=== PATIENT | female | born 1985 | race Caucasian/White ===

== ENCOUNTER → 2016-11-03 | Outpatient (CLI) | payer BC ==
[2016-11-03 14:03] LABS: CH 32.9; CHCM 34.3; HCT 38.8 % (34.0-46.0); HDW 2.75; HGB 12.9 gm/dL (11.4-16.0); MCH 32.1 pg (25.0-35.0); MCHC 33.2 g/dL (31.0-37.0); MCV 96.7 fL (80.0-100.0); Mean Platelet Volume 7.8; RBC 4.01 m/uL (3.80-5.40); RDW 13.6 % (11.5-15.5); WBC 9.5 k/uL (3.8-10.6)
[2016-11-03 14:25] LABS: Glucose 96 mg/dL (74-99); Non-African American GFR(MDRD) >60 (>60 ml/min/1.73 sqM)
[2016-11-03 14:56] LABS: Hepatitis B Surface Ag Index 0.05
[2016-11-04 04:18] LABS: Toxoplasma Antibody (IgG) <3.0 IU/mL (<7.2)
== END | disposition home or self-care (01) ==
LOC: LABWHC1 13:35
PROVIDERS: ATTEND Obstetrics & Gynecology
DX: Z34.82 Encounter for supervision of other normal pregnancy, second trimester (principal); Z3A.00 Weeks of gestation of pregnancy not specified
CPT/HCPCS: 36415; 82565; 82947; 85027; 86762; 86777; 86778; 86780; 86850; 86900; 86901; 87340

== ENCOUNTER → 2016-11-16 | Outpatient (CLI) | payer BC ==
--- NOTE | 2016-11-17 06:47 | US ---
EXAMINATION TYPE: US OB anatomy transabd DATE OF EXAM: 11/16/2016 3:56 PM COMPARISON: NONE HISTORY: LGA, smoker, TECHNIQUE: Transabdominal (TA) EXAM MEASUREMENTS: GESTATIONAL AGE / DATING Physician Established: (20 weeks/1 day) EDC: 04/04/2017 Dates by LMP: (20 weeks/1 day) EDC: 04/04/2017 Dates by First Scan: today Dates by Current Scan for: (19 weeks/3 days) EDC: 04/09/2017 SURVEY IUP: Single PLACENTA: Anterior PREVIA: No previa ANTONY: 17.4 cm Normal CERVICAL LENGTH (transabdominal: norm > 3.0cm): 3.7 cm BIOMETRY PRESENTATION: Breech at exam's start LIE: Oblique BPD: 4.5 cm 19 weeks / 4 days HC: 16.7 cm 19 weeks / 3 days AC: 14.1 cm 19 weeks / 3 days FL: 2.9 cm 19 weeks / 0 days ESTIMATED WEIGHT IN GRAMS: 282.9 grams ESTIMATED WEIGHT IN LBS/OZS: 0 lbs. 10 oz. WEIGHT PERCENTAGE BASED ON ESTABLISHED DATE: 9.3 % HC/AC: 1.18 normal FL/AC: 20.7 normal HEART RATE: 157 bpm RHYTHM: Normal ANATOMY SEEN (within normal limits): * Lateral Vent (< 1 cm) 0.6 cm * Cisterna Magna (< 1.1 cm) 0.4 cm * Nuchal Fold (< 0.6 cm) 0.5 cm * Cerebellum (varies with age) 1.9 cm Choroid Plexus (bilateral) Midline Falx Cavus Septi Pellucidi Four Chamber Heart Outflow tracts: LVOT Stomach Situs Diaphragm Kidneys (bilateral) Bladder Cord Insert Three Vessel Cord Longitudinal Spine Transverse Spine Arms (bilateral) Legs (bilateral) ANATOMY SEEN (does not appear within normal limits): ANATOMY NOT SEEN: Nose / Lips as <20 weeks gestation RVOT is limitedly seen TECHNOLOGIST IMPRESSION: Single, live, IUP, 19 weeks/3 days, EDC: 04/09/2017; HR 157bpm. IMPRESSION: Haq fetus present in breech presentation with a gestational age of 19 weeks 3 days +/- 10 days. Estimated date of confinement based on this examination is 04/09/2017. Please note that the morphologic examination is somewhat limited.
== END | disposition home or self-care (01) ==
LOC: RADUSWWP 14:50
PROVIDERS: ATTEND Obstetrics & Gynecology
DX: O36.62X0 Maternal care for excessive fetal growth, second trimester, not applicable or unspecified (principal); Z3A.00 Weeks of gestation of pregnancy not specified
CPT/HCPCS: 76811

== ENCOUNTER → 2017-01-06 | Outpatient (CLI) | payer BC ==
--- NOTE | 2017-01-06 14:57 | US ---
EXAMINATION TYPE: US OB anatomy transabd DATE OF EXAM: 01/06/2017 2:41 PM COMPARISON: US in PACS HISTORY: Z36 Confirm Dates Order states check remainder of anatomy not visualized on previous TECHNIQUE: Transabdominal (TA) EXAM MEASUREMENTS: GESTATIONAL AGE / DATING Physician Established: ( weeks/ days) EDC: Dates by LMP: ( weeks/ days) EDC: Dates by First Scan: ( weeks/ days) EDC: Dates by Current Scan for: ( weeks/ days) EDC: SURVEY IUP: Single PLACENTA: Anterior PREVIA: No previa ANTONY: 14.9 cm Normal CERVICAL LENGTH (transabdominal: norm > 3.0cm): 3.9 cm BIOMETRY PRESENTATION: Vertex BPD: 7.0 cm 28 weeks / 1 days HC: 26.4 cm 28 weeks / 6 days AC: 22.3 cm 26 weeks / 6 days FL: 5.1 cm 27 weeks / 3 days ESTIMATED WEIGHT IN GRAMS: 1042 grams ESTIMATED WEIGHT IN LBS/OZS: 2 lbs. 5 oz. WEIGHT PERCENTAGE BASED ON ESTABLISHED DATE: 29 % HC/AC: 1.18 Normal FL/AC: 23 Normal HEART RATE: 147 bpm RHYTHM: Normal ANATOMY SEEN (within normal limits): Outflow tracts: RVOT Nose / Lips Single, viable IUP/ Remainder of anatomy visualized and appears wnl IMPRESSION: OWENS FETUS PRESENT IN A VERTEX LIE WITH A GESTATIONAL AGE OF 27 WEEKS 3 DAYS +/- 2 WEEKS. ESTIMA JU DATE OF CONFINEMENT BASED ON THIS EXAMINATION IS 04/01/2017.
[2017-01-06 16:37] LABS: CH 33.2; CHCM 33.9; HCT 36.1 % (34.0-46.0); HDW 2.88; HGB 12.1 gm/dL (11.4-16.0); MCH 33.1 pg (25.0-35.0); MCHC 33.6 g/dL (31.0-37.0); MCV 98.5 fL (80.0-100.0); Mean Platelet Volume 7.5; RBC 3.66 m/uL (3.80-5.40); RDW 14.2 % (11.5-15.5); WBC 11.1 k/uL (3.8-10.6)
== END | disposition home or self-care (01) ==
LOC: RADUSWWP 14:19
PROVIDERS: ATTEND Obstetrics & Gynecology
DX: Z36 Encounter for antenatal screening of mother (principal); Z3A.27 27 weeks gestation of pregnancy
CPT/HCPCS: 36415; 76805; 82950; 85027

== ENCOUNTER 2017-04-11 06:03 | Inpatient (IN) | payer BC ==
[2017-04-11] MEDS ORDERED: CARBOPROST TROMETHAMINE 250 MCG/ML 1 ML AMP IM PRN (06:16)
[2017-04-11] MEDS ORDERED: METHYLERGONOVINE 0.2 MG/ML 1 ML AMP IM PRN (06:16)
[2017-04-11] MEDS ORDERED: LIDOCAINE 1% 20 ML VIAL (10MG/ML) FOR IV START INTRADERMA PRN (06:16)
[2017-04-11] MEDS ORDERED: OXYTOCIN 20 UNITS/1000 ML NS 1,000 ML IV SCH ×2 (06:16→11:42)
[2017-04-11] MEDS ORDERED: LIDOCAINE 1% (PF) 10 MG/ML (30 ML SDV) SQ PRN (06:16)
[2017-04-11] MEDS ORDERED: TERBUTALINE 1 MG/ML VIAL SQ PRN (06:16)
[2017-04-11] MEDS ORDERED: OXYTOCIN 10 UNIT/ML 1 ML VIAL IM PRN (06:16)
[2017-04-11 06:31] LABS: Basophils % (A) 0 %; CH 33.1; CHCM 34.7; Eosinophils # (A) 0.1 k/uL (0-0.7); Eosinophils % (A) 1 %; HCT 39.2 % (34.0-46.0); HDW 2.96; HGB 13.4 gm/dL (11.4-16.0); Luc # (Auto) 0.23; Luc % (Auto) 2; Lymphocytes # (A) 2.5 k/uL (1.0-4.8); Lymphocytes % (A) 23 %; MCH 32.9 pg (25.0-35.0); MCHC 34.3 g/dL (31.0-37.0); MCV 96.1 fL (80.0-100.0); Mean Platelet Volume 8.7; Monocytes # (A) 0.4 k/uL (0-1.0); Monocytes % (A) 4 %; Neutrophils # (A) 7.3 k/uL (1.3-7.7); Neutrophils % (A) 69 %; RBC 4.07 m/uL (3.80-5.40); RDW 15.6 % (11.5-15.5); WBC 10.6 k/uL (3.8-10.6)
[2017-04-11 06:44] VITALS: BMI 36.0
[2017-04-11] MEDS: LACTATED RINGERS 1,000 ML IV SCH ×2 (06:45→09:12)
--- NOTE | 2017-04-11 08:29 | P.HPOB ---
History of Present Illness H&P Date: 04/11/17 Chief Complaint: Induction of labor This is a 32-year-old female 3 para 2 with an estimated date of confinement of 04/04/2017, estimated gestational age of 41 weeks, who presents to labor and delivery for induction of labor secondary to postdates. She admits to good movement. She has been feeling frequent contractions. She denies any rupture of membranes. course has been uncomplicated. labs: Toxoplasma-negative Random glucose-96 Hepatitis B surface antigen-negative Hemoglobin-12.9 Syphilis antibody-negative nonreactive Rubella-low positive Blood type-be positive Antibody screen-negative Anatomy scan-normal anatomy Group B streptococcus-negative One hour Glucola-122 Obstetrical history: . History of 2 vaginal deliveries at full-term. Gynecologic history: No history of sexual transmitted diseases Social history: She is and is a homemaker. Review of Systems Constitutional: Denies chills, Denies fever Eyes: denies blurred vision, denies pain Ears, nose, mouth and throat: Denies headache, Denies sore throat Cardiovascular: Reports shortness of breath, Denies chest pain Gastrointestinal: Reports abdominal pain (Contractions) Genitourinary: Reports pelvic pain, Reports Musculoskeletal: Denies myalgias Integumentary: Denies pruritus, Denies rash Neurological: Denies numbness, Denies weakness Past Medical History Past Medical History: No Reported History History of Any Multi-Drug Resistant Organisms: None Reported Past Surgical History: No Surgical Hx Reported Additional Past Surgical History / Comment(s): [place] teeth Past Anesthesia/Blood Transfusion Reactions: No Reported Reaction Past Psychological History: Depression Smoking Status: Former smoker Past Alcohol Use History: None Reported Additional Past Alcohol Use History / Comment(s): 2 CIG A DAY Past Drug Use History: None Reported - Past Family History Mother Family Medical History: Thyroid Disorder Additional Family Medical History / Comment(s): hypoglycemia Medications and Allergies Home Medications Medication Instructions Recorded Confirmed Type Zgr-Qnwd-Ekvzo Acid 1 each PO DAILY 01/31/14 04/11/17 History [-U Capsule (formulary)] Calcium Carbonate [Calcium] 600 mg PO DAILY 04/01/15 04/11/17 History Allergies Allergy/AdvReac Type Severity Reaction Status Date / Time No Known Allergies Allergy Verified 04/11/17 06:16 Exam Osteopathic Statement: *. No significant issues noted on an osteopathic structural exam other than those noted in the History and Physical/Consult. - Vital Signs Vital signs: Vital Signs Temp Pulse Resp BP Pulse Ox 04/11/17 06:15 96 F L 94 18 122/76 97 Intake and Output 04/10/17 04/11/17 04/11/17 22:59 06:59 14:59 Other: Weight 104.326 kg EENT: Within normal limits Heart: Regular rate and rhythm Lungs: Clear to auscultation bilaterally Abdomen: Cervix: 4.5 to 5 cm/70%/-2 station. The official rupture membranes is carried out with thin meconium noted. Extremities: Negative Homans heart tones: Reactive Contractions: Irregular Results Result Diagrams: 04/11/17 06:20 Abnormal Lab Results - Last 24 Hours (Table) 04/11/17 Range/Units 06:20 RDW 15.6 H (11.5-15.5) % Assessment and Plan (1) 41 weeks gestation of Status: Acute (2) Post-dates Status: Acute (3) Meconium in amniotic fluid affecting management of mother in third trimester Status: Acute Plan: Admission for induction of labor. Artificial rupture membranes and oxytocin induction of labor. Epidural anesthesia. Expectant management. Anesthesia will be notified to be present for delivery due to meconium.
[2017-04-11] MEDS ORDERED: fentaNYL (PF) 50 MCG/ML 5 ML AMP ONE (08:31)
[2017-04-11] MEDS ORDERED: BUPIVACAINE (PF) 0.25% 30 ML VIAL ONE (08:31)
[2017-04-11] MEDS ORDERED: SODIUM CHLORIDE 0.9% 100 ML BAG ONE (08:31)
[2017-04-11] MEDS ORDERED: BUPIVACAINE (PF) 0.25% 25 ML, fentaNYL (PF) 200 MCG in SODIUM CHLORIDE 0.9% 71 ML EPIDURAL ONE (09:05)
[2017-04-11] MEDS ORDERED: BENZOCAINE/MENTHOL SPRAY 1 GM/SPRAY AEROSOL TOPICAL PRN (11:42)
[2017-04-11] MEDS ORDERED: WITCH HAZEL 1 EACH MED..PAD TOPICAL PRN (11:42)
[2017-04-11] MEDS ORDERED: SIMETHICONE 80 MG CHEWABLE PO PRN (11:42)
[2017-04-11] MEDS ORDERED: diphenhydrAMINE 50 MG/ML 1 ML VIAL IVP PRN ×2 (11:42)
[2017-04-11] MEDS ORDERED: LANOLIN CREAM 5 GM TUBE TOPICAL PRN (11:42)
[2017-04-11] MEDS ORDERED: Acetaminophen-Codeine 300-30mg TAB PO PRN ×2 (11:42)
[2017-04-11] MEDS ORDERED: diphenhydrAMINE 50 MG CAP PO PRN (11:42)
[2017-04-11] MEDS ORDERED: MEASLES-MUMPS-RUBELLA VACC/PF 12,500 UNIT/0.5 ML VIAL SQ ONE (11:42)
[2017-04-11] MEDS ORDERED: HYDROCORTISONE 2.5% RECTAL CREAM 30 GM TUBE RECTAL PRN (11:42)
[2017-04-11] MEDS ORDERED: diphenhydrAMINE 25 MG CAP PO PRN (11:42)
[2017-04-11] MEDS ORDERED: ZOLPIDEM 5 MG TAB PO PRN (11:42)
[2017-04-11] MEDS: IBUPROFEN 600 MG TAB PO PRN ×2 (13:16→19:27)
--- NOTE | 2017-04-11 13:32 | P.PROBDLV ---
Vaginal Delivery Note - . Vaginal Delivery Note: The patient progressed to complete dilation after oxytocin induction of labor and artificial rupture membranes with thin meconium noted. She did receive epidural anesthesia. Once reaching complete dilation, she began pushing. Infant's head came to a crown and then delivered across the perineum followed by the anterior shoulder. Nose and mouth were bulb suctioned at the perineum and nuchal cord times one was reduced around the 's head. With one further push, the uterus the infant easily delivered and was placed on mother's abdomen. Brisk cry was noted immediately. Cord was clamped and cut and infant was taken to warmer for evaluation. A viable female was noted with scores of 8 at 1 minute and 9 at 5 minutes and weight of 7 lbs. 6 oz. Placenta delivered shortly thereafter, intact, with a three-vessel cord. Uterus contracted well after oxytocin was given and uterine massage was carried out. A small second-degree perineal laceration was noted and anesthetized with 1% lidocaine and sutured with 3-0 Vicryl suture in a running locked fashion. Estimated blood loss is approximately 150 mL's. Both mother and infant are in stable condition.
[2017-04-11] MEDS: ACETAMINOPHEN TAB 325 MG TAB PO PRN ×2 (16:18→21:51)
[2017-04-11] MEDS: SENNOSIDES-DOCUSATE SODIUM 1 EACH TAB PO SCH (19:28)
[2017-04-12 00:02] VITALS: PULSE 85
[2017-04-12] MEDS: IBUPROFEN 600 MG TAB PO PRN (03:49)
[2017-04-12 06:34] LABS: Basophils % (A) 0 %; CH 32.8; CHCM 33.8; Eosinophils # (A) 0.2 k/uL (0-0.7); Eosinophils % (A) 1 %; HCT 35.2 % (34.0-46.0); HDW 2.94; HGB 11.9 gm/dL (11.4-16.0); Luc # (Auto) 0.21; Luc % (Auto) 2; Lymphocytes # (A) 2.3 k/uL (1.0-4.8); Lymphocytes % (A) 22 %; MCHC 33.8 g/dL (31.0-37.0); MCV 97.7 fL (80.0-100.0); Macrocytosis Slight; Mean Platelet Volume 8.4; Monocytes # (A) 0.3 k/uL (0-1.0); Monocytes % (A) 3 %; Neutrophils # (A) 7.5 k/uL (1.3-7.7); Neutrophils % (A) 71 %; RDW 15.9 % (11.5-15.5); WBC 10.6 k/uL (3.8-10.6); WBC (Perox) 11.01
[2017-04-12] MEDS: SENNOSIDES-DOCUSATE SODIUM 1 EACH TAB PO SCH (07:54)
[2017-04-12 08:00] VITALS: BP 127/72; RESP 18; TEMP 97.8
--- NOTE | 2017-04-12 08:48 | P.DS ---
Providers Date of admission: 04/11/17 06:03 Expected date of discharge: 04/12/17 Attending physician: Rylee Gonzales Primary care physician: Yudi Torres - Discharge Diagnosis(es) (1) 41 weeks gestation of Current Visit: Yes Status: Acute (2) Post-dates Current Visit: Yes Status: Acute (3) Meconium in amniotic fluid affecting management of mother in third trimester Current Visit: Yes Status: Acute Hospital Course: This is a 32-year-old female 3 para 2 at 41-0/7 weeks who presented for induction of labor. She underwent oxytocin induction of labor and delivered vaginally a viable female infant on 04/11/2017 with scores of 8 at 1 minute and 9 at 5 minutes and weight of 7 lbs. 6 oz. Meconium fluid was noted and she did have a nuchal cord times one. Her course was uncomplicated. Pain is fairly well controlled with ibuprofen and Tylenol 3. Lochia is decreasing. She is breast-feeding without difficulty. Vital signs are stable. Abdomen is soft with fundus firm and nontender. Extremity show negative Homans. Impression is status post vaginal delivery day #1. Plan is to discharge home today. Routine instructions are given. She will be given prescriptions for ibuprofen and Tylenol 3. She is advised to follow up in the office in 6 weeks. She is advised to call the office if she has any further questions or concerns prior to her appointment time. Procedures: Pitocin induction of labor Spontaneous vaginal delivery of a viable female on 04/11/2017 Patient Condition at Discharge: Stable Plan - Discharge Summary New Discharge Prescriptions: New Acetaminophen-Codeine 300-30mg [Tylenol w/codeine #3] 1 each PO Q4HR PRN #30 tab PRN Reason: Mild Pain exceeding Tylenol Ibuprofen [Motrin] 600 mg PO Q6HR PRN #60 tab PRN Reason: Mild Pain Or Fever >= 100.5 Continue Csu-Npfo-Quvmn Acid [-U Capsule (formulary)] 1 each PO DAILY Calcium Carbonate [Calcium] 600 mg PO DAILY Discharge Medication List Pyf-Drvn-Yjxiu Acid [-U Capsule (formulary)] 1 each PO DAILY [History] Calcium Carbonate [Calcium] 600 mg PO DAILY 04/01/15 [History] Acetaminophen-Codeine 300-30mg [Tylenol w/codeine #3] 1 each PO Q4HR PRN #30 tab 04/12/17 [Rx] Ibuprofen [Motrin] 600 mg PO Q6HR PRN #60 tab 04/12/17 [Rx] Follow up Appointment(s)/Referral(s): Rylee Gonzales DO [Doctor of Osteopathic Medicine] - 6 Weeks Activity/Diet/Wound Care/Special Instructions: Instructions 1. Do not begin any exercise program for 3 weeks. 2. Do not resume sexual relations for 3 weeks or longer if uncomfortable. 3. You may take tub baths or showers at any time. 4. You may use tampons if desired after 3 weeks. 5. Keep the area of episiotomy (stitches) clean and dry. 6. If you are not nursing, wear a good fitting, supportive bra during the day and limit fluid intake for at least 1 week to prevent breast engorgement. 7. Call the office, [phone], within the next week to make appointment for your 6 week checkup if it has not already been made. 8. Report any of the following occurrences to the doctor promptly: a. Heavy, excessive bleeding b. Chills, fever c. Burning or frequency of urination d. Pain or redness and breasts if nursing e. Increasing pain or swelling in episiotomy (stitches). In addition to the above instructions, the following additional should be followed: 1. No heavy lifting or straining (exercising) until after 6 week checkup. 2. Keep abdominal incision clean and dry: You may wear a dressing if more comfortable. 3. Make office appointment for 10 days after going home or as instructed by her doctor. Discharge Disposition: HOME SELF-CARE
== END 2017-04-12 11:15 | disposition home or self-care (01) | DRG 775 ==
LOC: 4FBP 06:03
PROVIDERS: ADMIT Obstetrics & Gynecology; ATTEND Obstetrics & Gynecology
PROC: 10E0XZZ Delivery of Products of Conception, External Approach (ICD-10-PCS; principal; 2017-04-11)
PROC: 10907ZC Drainage of Amniotic Fluid, Therapeutic from Products of Conception, Via Natural or Artificial Opening (ICD-10-PCS; principal; 2017-04-11)
PROC: 3E0R3CZ (ICD-10-PCS; principal; 2017-04-11)
PROC: 3E033VJ Introduction of Other Hormone into Peripheral Vein, Percutaneous Approach (ICD-10-PCS; principal; 2017-04-11)
PROC: 0KQM0ZZ Repair Perineum Muscle, Open Approach (ICD-10-PCS; principal; 2017-04-11)
PROC: 00HU33Z Insertion of Infusion Device into Spinal Canal, Percutaneous Approach (ICD-10-PCS; principal; 2017-04-11)
DX: O48.0 Post-term pregnancy (principal); O77.0 Labor and delivery complicated by meconium in amniotic fluid; Z37.0 Single live birth; O69.81X0 Labor and delivery complicated by cord around neck, without compression, not applicable or unspecified; Z3A.41 41 weeks gestation of pregnancy; Z87.891 Personal history of nicotine dependence; O70.1 Second degree perineal laceration during delivery
CPT/HCPCS: 85025; 88307

== ENCOUNTER 2020-09-22 11:55 | Inpatient (IN) | payer BC ==
[2020-09-22] MEDS ORDERED: CARBOPROST TROMETHAMINE 250 MCG/ML 1 ML AMP IM PRN (12:42)
[2020-09-22] MEDS ORDERED: LIDOCAINE 0.5% (PF) 5 MG/ML (50 ML SDV) SQ PRN (12:42)
[2020-09-22] MEDS ORDERED: TERBUTALINE 1 MG/ML VIAL SQ PRN (12:42)
[2020-09-22] MEDS ORDERED: OXYTOCIN 10 UNIT/ML 1 ML VIAL IM PRN (12:42)
[2020-09-22] MEDS ORDERED: METHYLERGONOVINE 0.2 MG/ML 1 ML AMP IM PRN (12:42)
[2020-09-22] MEDS ORDERED: OXYTOCIN 30 UNITS/500 ML NS 30 UNIT in SALINE 1 500ML.BAG IV SCH (12:45)
[2020-09-22] MEDS ORDERED: LACTATED RINGERS 1,000 ML IV SCH (12:45)
[2020-09-22 12:58] LABS: Glucose,Whole Blood 86 mg/dL (75-99)
[2020-09-22 13:12] LABS: Basophils % (A) 0 %; Eosinophils # (A) 0.1 k/uL (0-0.7); Eosinophils % (A) 1 %; HCT 45.3 % (34.0-46.0); HGB 16.2 gm/dL (11.4-16.0); Lymphocytes % (A) 16 %; MCHC 35.7 g/dL (31.0-37.0); MCV 95.3 fL (80.0-100.0); Monocytes # (A) 0.4 k/uL (0-1.0); Monocytes % (A) 3 %; Neutrophils # (A) 9.8 k/uL (1.3-7.7); Neutrophils % (A) 78 %; Platelet Count 208 k/uL (150-450); RBC 4.75 m/uL (3.80-5.40); RDW 14.5 % (11.5-15.5); WBC 12.5 k/uL (3.8-10.6)
[2020-09-22] MEDS ORDERED: ROPIVACAINE 5MG/ML 20ML VIAL ONE (13:30)
[2020-09-22] MEDS ORDERED: fentaNYL (PF) 50 MCG/ML 5 ML AMP ONE (13:30)
[2020-09-22] MEDS ORDERED: SODIUM CHLORIDE 0.9% 100 ML BAG ONE (13:30)
[2020-09-22] MEDS ORDERED: SIMETHICONE 80 MG CHEWABLE PO PRN (15:27)
[2020-09-22] MEDS ORDERED: diphenhydrAMINE 25 MG CAP PO PRN (15:27)
[2020-09-22] MEDS ORDERED: LANOLIN CREAM 5 GM TUBE TOPICAL PRN (15:27)
[2020-09-22] MEDS ORDERED: ZOLPIDEM 5 MG TAB PO PRN (15:27)
[2020-09-22] MEDS ORDERED: HYDROCORTISONE 2.5% RECTAL CREAM 30 GM TUBE RECTAL PRN (15:27)
[2020-09-22] MEDS ORDERED: BENZOCAINE/MENTHOL SPRAY 1 GM/SPRAY AEROSOL TOPICAL PRN (15:27)
[2020-09-22] MEDS ORDERED: diphenhydrAMINE 50 MG/ML 1 ML VIAL IVP PRN ×2 (15:27)
[2020-09-22] MEDS ORDERED: diphenhydrAMINE 50 MG CAP PO PRN (15:27)
[2020-09-22] MEDS ORDERED: ACETAMINOPHEN TAB 325 MG TAB PO PRN (15:27)
[2020-09-22] MEDS ORDERED: OXYTOCIN 20 UNITS/1000 ML NS 1,000 ML IV SCH (15:30)
--- NOTE | 2020-09-22 18:15 | P.HPOB ---
History of Present Illness H&P Date: 09/22/20 Chief Complaint: Spontaneous rupture of membranes This is a 35-year-old female 4 para 3 with an estimated date of confinement of 09/24/2020, estimated gestational age of 39-5/7 weeks, who presented to labor and delivery with complaints of contractions and spontaneous rupture of membranes at approximately 8:30 AM with clear fluid noted. She has been feeling irregular contractions since. care has been complicated by gestational diabetes and a double looped placenta. She has been following with maternal- medicine and has been diet controlled. labs: GC/chlamydia/Trichomonas-negative Obstetrical ultrasound-normal anatomy Hepatitis B surface antigen-negative RPR-nonreactive Rubella-nonimmune Blood type-B+ Antibody screen-negative Hemoglobin-12.8 Toxoplasma screen-negative Random glucose-139 One hour Glucola-176 Three-hour Glucola-abnormal Group B streptococcus-negative Obstetrical history: . History of 3 vaginal deliveries at term. Gynecologic history: No history of sexually transmitted diseases. Social history: She is . She is a homemaker. Review of Systems Constitutional: Denies chills, Denies fever Eyes: denies blurred vision, denies pain Ears, nose, mouth and throat: Denies headache, Denies sore throat Cardiovascular: Denies chest pain, Denies shortness of breath Respiratory: Denies cough Gastrointestinal: Reports abdominal pain Genitourinary: Reports pelvic pain, Reports Musculoskeletal: Reports low back pain Integumentary: Denies pruritus, Denies rash Neurological: Denies numbness, Denies weakness Psychiatric: Denies anxiety, Denies depression Past Medical History Additional Past Medical History / Comment(s): gestational diabetes diet controlled History of Any Multi-Drug Resistant Organisms: None Reported Additional Past Surgical History / Comment(s): [place] teeth Past Anesthesia/Blood Transfusion Reactions: No Reported Reaction Past Psychological History: No Psychological Hx Reported Smoking Status: Current some day smoker Past Alcohol Use History: None Reported Past Drug Use History: None Reported - Past Family History Mother Family Medical History: Thyroid Disorder Additional Family Medical History / Comment(s): hypoglycemia Medications and Allergies Home Medications Medication Instructions Recorded Confirmed Type RX: Mzm-Ejhr-Bosuo Acid 1 each PO DAILY 01/31/14 09/22/20 History [-U Capsule (formulary)] Allergies Allergy/AdvReac Type Severity Reaction Status Date / Time No Known Allergies Allergy Verified 09/22/20 12:06 Exam Osteopathic Statement: *. No significant issues noted on an osteopathic structural exam other than those noted in the History and Physical/Consult. Vital Signs Temp Pulse Resp BP Pulse Ox 09/22/20 17:21 80 17 127/79 09/22/20 16:54 74 17 119/75 09/22/20 16:21 86 16 132/83 09/22/20 16:06 78 16 139/89 09/22/20 15:51 70 17 137/86 09/22/20 15:35 71 16 120/73 09/22/20 15:21 98.1 F 86 16 126/79 09/22/20 13:04 97.1 F L 95 17 131/82 09/22/20 12:08 97.1 F L 95 17 131/82 99 Intake and Output 09/22/20 09/22/20 09/22/20 06:59 14:59 22:59 Other: # Voids 1 Weight 111.13 kg HEENT: Within normal limits Heart: Regular rate and rhythm Lungs: Clear to auscultation bilaterally Abdomen: Cervix: Initially is 5 cm/70%/-2 station. Amnisure is positive with clear fluid noted. heart tones: Category 1 Contractions: Every 5-10 minutes Extremities: Negative Homans Results Result Diagrams: 09/22/20 12:57 Abnormal Lab Results - Last 24 Hours (Table) 09/22/20 Range/Units 12:57 WBC 12.5 H (3.8-10.6) k/uL Hgb 16.2 H (11.4-16.0) gm/dL Neutrophils # 9.8 H (1.3-7.7) k/uL Assessment and Plan (1) 40 weeks gestation of Current Visit: Yes Status: Acute Code(s): Z3A.40 - 40 WEEKS GESTATION OF SNOMED Code(s): 13523463 (2) Gestational diabetes mellitus Current Visit: Yes Status: Acute Code(s): O24.419 - GESTATIONAL DIABETES MELLITUS IN , UNSP CONTROL SNOMED Code(s): 80791758 Plan: Admit for active labor. Expectant management. Epidural anesthesia if desired.
--- NOTE | 2020-09-22 18:17 | P.PROBDLV ---
Vaginal Delivery Note - . Vaginal Delivery Note: The patient progressed to complete dilation after oxytocin augmentation of labor. She did receive epidural anesthesia. Once reaching complete, she began pushing. 's head came to a crown and then delivered across the perineum with one push. With one further push, the remainder the easily delivered and was placed on mother's abdomen. Nose and mouth were bulb suctioned. Cord was clamped. Infant was examined by nursing staff. A viable female infant was noted with scores of 9 at 1 minute and 9 at 5 minutes and infant weight is 6 pounds 7.7 ounces. Placenta delivered shortly thereafter, intact with a three-vessel cord. There was a bilobed contour to it. Placenta will be sent to pathology. Uterus contracted well after oxytocin was given and uterine massage was carried out. Inspection of the perineum revealed a small first-degree claudia munira laceration. This area was anesthetized with 1% lidocaine and then sutured with 3-0 Vicryl suture in a running locked fashion. Estimated blood loss is approximately 100 mL's. Both mother and infant are in stable condition.
--- NOTE | 2020-09-22 18:18 | P.MSEPDOC ---
Presenting Problems - Arrival Data Date of Arrival on Unit: 09/22/20 Time of Arrival on Unit: 12:35 Mode of Transport: Ambulatory - Complaint OB-Reason for Admission/Chief Complaint: Rule Out SROM Comment: pt c/o rom of clear fluid at 0830 today, reports + fm and occasional contractions, denies vb, abd soft and non tender Medical History - Information : 4 Para: 3 Term: 3 : 0 Abortions: Spontaneous or Elective: 0 Number of Living Children: 3 - Gestational Age Gestational Age by JESUS (wks/days): 39 Weeks and 5 Days - History Complications: GDM Comment: accucheck 86, double lobe placenta Review of Systems - Review of Systems Constitutional: No problems Breast: No problems ENT: No problems Cardiovascular: No problems Respiratory: No problems Gastrointestinal: No problems Genitourinary: No problems Musculoskeletal: No problems Neurological: No problems Skin: No problems Vital Signs - Temperature Temperature: 98.1 F Temperature Source: Oral - Pulse Right Brachial Pulse Rate: 80 Pulse Assessment Method: Automatic Cuff - Respirations Respiratory Rate: 17 Oxygen Delivery Method: Room Air - Blood Pressure Right Arm Blood Pressure: 127/79 Blood Pressure Mean: 95 Blood Pressure Source: Automatic Cuff Medical Screen Scoring (Pre) - Cervical Exam Dilation: 1-3 cm = 1 Membranes: Ruptured = 3 - Uterine Contractions Frequency: > 5 minutes apart = 1 Duration: > 40 seconds = 2 - Maternal Vital Signs Maternal Temperature: N/A Maternal Blood Pressure: N/A Signs of Preeclampsia: N/A Maternal Respirations: N/A - Maternal Trauma Maternal Trauma: N/A - Assessment - Baby A Baseline FHR: 140 Heart Rate - NICHD Category: Category I (Normal) = 0 NST: Reactive Position: N/A Station: N/A - Total Score - Baby A Total Score - Baby A: 7 - Total Score - Baby B Total Score - Baby B: 7 - Total Score - Baby C Total Score - Baby C: 7 - Level of Risk - Baby A Level of Risk - Baby A: Medium (6-9) - Level of Risk - Baby B Level of Risk - Baby B: Medium (6-9) - Level of Risk - Baby C Level of Risk - Baby C: Medium (6-9) Physician Notification (Pre) - Physician Notified Physician Notified Date: 09/22/20 Physician Notified Time: 13:00 New Order Received: Yes (admit pt for labor) Disposition - Disposition OB Disposition: Admit, LDRP Suite I agree with the RN Medical Screening Exam: Yes Risk & Benefit of care provided described in d/c instruction: Yes Diagnosis: ENCOUNTER FOR FULL-TERM UNCOMPLICATED DELIVERY
[2020-09-22] MEDS: IBUPROFEN 600 MG TAB PO PRN (19:54)
[2020-09-22] MEDS: SENNOSIDES-DOCUSATE SODIUM 1 EACH TAB PO SCH (20:22)
[2020-09-23] MEDS: IBUPROFEN 600 MG TAB PO PRN ×2 (02:20→10:00)
[2020-09-23 06:03] LABS: Basophils % (A) 0 %; Eosinophils # (A) 0.2 k/uL (0-0.7); Eosinophils % (A) 2 %; HGB 13.7 gm/dL (11.4-16.0); Lymphocytes # (A) 2.7 k/uL (1.0-4.8); Lymphocytes % (A) 28 %; MCH 33.6 pg (25.0-35.0); MCHC 33.4 g/dL (31.0-37.0); Macrocytosis Slight; Mean Platelet Volume 8.4; Monocytes # (A) 0.4 k/uL (0-1.0); Monocytes % (A) 4 %; Neutrophils # (A) 6.4 k/uL (1.3-7.7); Neutrophils % (A) 64 %; Platelet Count 158 k/uL (150-450); RBC 4.08 m/uL (3.80-5.40); RDW 14.6 % (11.5-15.5)
[2020-09-23 06:08] LABS: MCV 100.5 fL (80.0-100.0)
--- NOTE | 2020-09-23 06:16 | P.DS ---
Providers Date of admission: 09/22/20 12:26 Expected date of discharge: 09/23/20 Attending physician: Rylee Gonzales Primary care physician: Stated None - Discharge Diagnosis(es) (1) 40 weeks gestation of Current Visit: Yes Status: Acute (2) Gestational diabetes mellitus Current Visit: Yes Status: Acute Hospital Course: This is a 35-year-old female 4 para 3 at 39-5/7 weeks who presented in active labor with spontaneous rupture of membranes. She underwent oxytocin aug mentation of labor and delivered vaginally a viable female on 09/22/2020 with scores of 9 at 1 minute and 9 at 5 minutes and infant weight of 6 lbs. 7 oz. Her course has been essentially uncomplicated. She is sore especially around her epidural site. She has been using Tylenol and ibuprofen. Lochia is minimal. She is breast-feeding without difficulty. Vital signs are stable. Abdomen is soft with fundus firm and nontender. Extremities show negative Homans. Impression is status post vaginal delivery day #1. Plan is to discharge home later today. Routine instructions are given. She will be given a prescription for ibuprofen. She is advised follow- up in the office in 6 weeks for a check. She is advised to call the office if she has any further questions or concerns prior to her appointment time. Procedures: Spontaneous vaginal delivery of a viable female on 09/22/2020 Patient Condition at Discharge: Stable Plan - Discharge Summary New Discharge Prescriptions: New Ibuprofen [Motrin] 600 mg PO Q6HR PRN #60 tab PRN Reason: Mild Pain Or Fever >= 100.5 Continue Tfw-Mwib-Pmwpc Acid [-U Capsule (formulary)] 1 each PO DAILY Discharge Medication List Pli-Jovo-Ubxoc Acid [-U Capsule (formulary)] 1 each PO DAILY 01/31/14 [History] Ibuprofen [Motrin] 600 mg PO Q6HR PRN #60 tab 09/23/20 [Rx] Follow up Appointment(s)/Referral(s): Rylee Gonzales DO [Doctor of Osteopathic Medicine] - 6 Weeks Activity/Diet/Wound Care/Special Instructions: Instructions 1. Do not begin any exercise program for 3 weeks. 2. Do not resume sexual relations for 3 weeks or longer if uncomfortable. 3. You may take tub baths or showers at any time. 4. You may use tampons if desired after 3 weeks. 5. Keep the area of episiotomy (stitches) clean and dry. 6. If you are not nursing, wear a good fitting, supportive bra during the day and limit fluid intake for at least 1 week to prevent breast engorgement. 7. Call the office, [phone], within the next week to make appointment for your 6 week checkup if it has not already been made. 8. Report any of the following occurrences to the doctor promptly: a. Heavy, excessive bleeding b. Chills, fever c. Burning or frequency of urination d. Pain or redness and breasts if nursing e. Increasing pain or swelling in episiotomy (stitches). In addition to the above instructions, the following additional should be followed: 1. No heavy lifting or straining (exercising) until after 6 week checkup. 2. Keep abdominal incision clean and dry: You may wear a dressing if more comfortable. 3. Make office appointment for 10 days after going home or as instructed by her doctor. Discharge Disposition: HOME SELF-CARE
[2020-09-23] MEDS: SENNOSIDES-DOCUSATE SODIUM 1 EACH TAB PO SCH (10:03)
[2020-09-23 10:18] VITALS: RESP 18
[2020-09-23 12:02] VITALS: BP 123/94; PULSE 100; TEMP 97.9
== END 2020-09-23 16:20 | disposition home or self-care (01) | DRG 807 ==
LOC: FBPOP 11:55 → 4FBP 12:26
PROVIDERS: ADMIT Obstetrics & Gynecology; ATTEND Obstetrics & Gynecology
PROC: 0HQ9XZZ Repair Perineum Skin, External Approach (ICD-10-PCS; principal; 2020-09-22)
PROC: 3E0R3BZ Introduction of Anesthetic Agent into Spinal Canal, Percutaneous Approach (ICD-10-PCS; principal; 2020-09-22)
PROC: 00HU33Z Insertion of Infusion Device into Spinal Canal, Percutaneous Approach (ICD-10-PCS; principal; 2020-09-22)
PROC: 10E0XZZ Delivery of Products of Conception, External Approach (ICD-10-PCS; principal; 2020-09-22)
DX: O24.429 Gestational diabetes mellitus in childbirth, unspecified control (principal); Z37.0 Single live birth; F17.200 Nicotine dependence, unspecified, uncomplicated; O70.0 First degree perineal laceration during delivery; O99.334 Smoking (tobacco) complicating childbirth; Z3A.39 39 weeks gestation of pregnancy; Z3A.40 40 weeks gestation of pregnancy
CPT/HCPCS: 85025; 86850; 86900; 86901; 88307